=== PATIENT | female | born 1965 | race Caucasian/White ===

== ENCOUNTER 2022-11-15 08:54 | Outpatient (OUT) | payer OTHER, SELFPAY | END 2022-11-15 08:55 | disposition home or self-care (01) | LOC: SLEEP 08:55 | PROVIDERS: PCP Family Medicine; Visit Provider Family Medicine | DX: G47.33 Obstructive sleep apnea (adult) (pediatric) (principal); R06.83 Snoring | CPT/HCPCS: 95806 ==

== ENCOUNTER 2022-12-07 19:43 | Outpatient (OUT) | payer OTHER, SELFPAY | END 2022-12-07 19:44 | disposition home or self-care (01) | LOC: SLEEP 19:43 | PROVIDERS: PCP Family Medicine; Visit Provider Family Medicine | DX: G47.33 Obstructive sleep apnea (adult) (pediatric) (principal) | CPT/HCPCS: 95811 ==

== ENCOUNTER 2024-11-06 12:39 | Outpatient (OUT) | payer OTHER, SELFPAY | END 2024-11-06 12:40 | disposition home or self-care (01) | LOC: PST 12:39 | PROVIDERS: PCP Family Medicine; Visit Provider Surgery | DX: Z01.818 Encounter for other preprocedural examination (principal); K59.00 Constipation, unspecified; K62.5 Hemorrhage of anus and rectum; Z12.11 Encounter for screening for malignant neoplasm of colon ==

== ENCOUNTER 2024-11-14 06:28 | Day surgery (SDC) | payer OTHER, SELFPAY ==
--- NOTE | 2024-11-14 | OP_ITS ---
OPERATION DATE: 11/14/2024 PREOPERATIVE DIAGNOSIS: Rectal bleeding, constipation. POSTOPERATIVE DIAGNOSIS: Redundant colon, as well as a 3 mm distal sigmoid polyp. PROCEDURE: Colonoscopy to cecum with cold forceps polypectomy x1. SURGEON: Henrique Encinas M.D. ANESTHESIA: Monitored anesthesia care. ESTIMATED BLOOD LOSS: Less than 1 mL. INDICATIONS AND CONSENT: Patient is a 59-year-old white female with history of intermittent constipation, as well as bright red rectal bleeding. Indications, risks, benefits, alternatives of proceeding with colonoscopy were explained extensively to the patient, including the risks of bleeding, colon perforation or anesthetic complications. All of her questions were answered. Informed consent was obtained. PROCEDURE: Patient brought to the operating room, placed in the left lateral decubitus position. Monitored anesthesia care was provided. Rectal exam was performed which showed no masses or blood. The scope was inserted into the anal canal. Under direct visualization was advanced. With the aid of abdominal compression, it was advanced to the cecum where cecal markings were clearly identified. There was noted to be a good prep. Upon withdrawal of the scope, mucosal surfaces were carefully examined. There were no mass lesions or inflammatory changes. No significant diverticulosis. There was redundancy of the colon with some spasm. Within the distal sigmoid colon, there was noted to be a 3 mm sessile polyp that was removed with cold biopsy forceps with good hemostasis. The scope was retroflexed in the anal canal. There was no significant hemorrhoidal disease. The scope was then withdrawn. Patient tolerated procedure well, was sent to recovery room in good condition. Follow up surveillance colonoscopy likely in five years, but will depend on the pathology report. CC: Calli Lang M.D. [facility]
[2024-11-14 06:49] VITALS: BP 131/63; PULSE 82; TEMP 36.2; O2SAT 96; BMI 24.0
[2024-11-14] MEDS: 0.9 % SODIUM CHLORIDE 500 ML 50 ML IV (07:00)
[2024-11-14 07:46] VITALS: BP 114/66; PULSE 80; TEMP 36.4; O2SAT 100
[2024-11-14 07:57] VITALS: BP 94/66; PULSE 78; O2SAT 100
[2024-11-14 08:12] VITALS: BP 114/69; PULSE 72; O2SAT 100
== END 2024-11-14 08:14 | disposition home or self-care (01) ==
LOC: SURGOUT 06:28
PROVIDERS: PCP Family Medicine; Visit Provider Surgery
PROC: (CPT 00811; principal; 2024-11-14 07:30)
DX: K59.00 Constipation, unspecified (principal); K62.5 Hemorrhage of anus and rectum; Q43.8 Other specified congenital malformations of intestine; K63.5 Polyp of colon; K21.9 Gastro-esophageal reflux disease without esophagitis; Z90.710 Acquired absence of both cervix and uterus; G47.33 Obstructive sleep apnea (adult) (pediatric)
CPT/HCPCS: 00811; 45380; J2704

== ENCOUNTER 2025-03-18 08:51 | Outpatient (RCR) | payer OTHER, SELFPAY | END 2025-04-04 10:28 | disposition home or self-care (01) | LOC: PT 08:51 | PROVIDERS: PCP Family Medicine; Visit Provider Orthopaedic Surgery | DX: R26.9 Unspecified abnormalities of gait and mobility (principal); Z98.890 Other specified postprocedural states | CPT/HCPCS: 97110; 97112; 97162; 97530 ==